=== PATIENT | female | born 1945 | race Caucasian/White ===

== ENCOUNTER 2023-11-08 09:04 | Outpatient (OUT) | payer MEDICAID, MEDICARE, SELFPAY ==
--- NOTE | 2023-11-08 | XR_ITS ---
The [address] [address] Patient Name: SABRINA PATE MRN: [id number] date: 1945 Sex: F Assigned Patient Location: Current Patient Location: Accession/Order Number: [id number] Exam Date: 11/08/2023 09:51 Report Date: 11/10/2023 07:59 At the request of: RENEE ACEVES Procedure: XR hip RT 2V w/ pelvis PROCEDURE: XR hip RT 2V w/ pelvis COMPARISON: None. HISTORY: RIGHT HIP AND PELVIS PAIN FINDINGS: BONES:Severe bilateral hip osteoarthritis with marked bilateral acetabular and right femoral head remodeling, right greater than left. Degenerative changes of the spine SOFT TISSUES:Negative. No visible soft tissue swelling. EFFUSION:None visible. OTHER: Negative. XR/XR hip RT 2V w/ pelvis IMPRESSION: Severe bilateral hip osteoarthritis, right greater than left Electronically authenticated by: JUAN LUIS HAMPTON Date: 11/10/2023 07:59
--- NOTE | 2023-11-08 | XR_ITS ---
The [address] [address] Patient Name: SABRINA PATE MRN: [id number] date: 1945 Sex: F Assigned Patient Location: Current Patient Location: Accession/Order Number: [id number] Exam Date: 11/08/2023 09:51 Report Date: 11/08/2023 16:29 At the request of: RENEE ACEVES Procedure: XR knee RT 4V PROCEDURE: XR knee RT 4V COMPARISON: None. HISTORY: RIGHT KNEE PAIN FINDINGS: BONES:No acute fracture or dislocation. No significant degenerative changes. Calcific density noted along the medial femoral condyle likely enthesopathic spurring or remote avulsion. SOFT TISSUES:Negative. No visible soft tissue swelling. EFFUSION:None visible. OTHER: Extensive vascular calcifications XR/XR knee RT 4V IMPRESSION: No acute abnormality Electronically authenticated by: JUAN LUIS HAMPTON Date: 11/08/2023 16:29
--- NOTE | 2023-11-08 | XR_ITS ---
The [address] [address] Patient Name: SABRINA PATE MRN: [id number] date: 1945 Sex: F Assigned Patient Location: Current Patient Location: Accession/Order Number: [id number] Exam Date: 11/08/2023 10:40 Report Date: 11/10/2023 07:26 At the request of: RENEE ACEVES Procedure: XR shoulder LT min 2V PROCEDURE: XR shoulder LT min 2V COMPARISON: None. HISTORY: LEFT SHOULDER PAIN FINDINGS: BONES:No acute fracture or dislocation. Severe glenohumeral joint osteoarthritis with [id number] articulation bony remodeling and subchondral mixed lytic and sclerotic changes SOFT TISSUES:Negative. No visible soft tissue swelling. EFFUSION:None visible. OTHER: Negative. XR/XR shoulder LT min 2V IMPRESSION: Severe glenohumeral joint osteoarthritis Electronically authenticated by: JUAN LUIS HAMPTON Date: 11/10/2023 07:26
== END 2023-11-08 09:05 | disposition home or self-care (01) ==
LOC: EC 09:08
PROVIDERS: Visit Provider Orthopaedic Surgery
DX: M25.512 Pain in left shoulder (principal); M25.561 Pain in right knee; M25.551 Pain in right hip; M16.0 Bilateral primary osteoarthritis of hip; M19.012 Primary osteoarthritis, left shoulder
CPT/HCPCS: 73030; 73502; 73564